=== PATIENT | male | born 1945 | race Caucasian/White ===

== ENCOUNTER 2019-08-02 10:39 | Inpatient (IN) ==
[2019-08-02] MEDS ORDERED: DOCUSATE SODIUM 100 MG CAPSULE PO PRN ×2 (14:29→15:38)
[2019-08-02] MEDS ORDERED: ONDANSETRON 4 MG/2 ML VIAL IV PRN (14:29)
[2019-08-02] MEDS ORDERED: ACETAMINOPHEN 325 MG TABLET PO PRN (14:29)
[2019-08-02] MEDS ORDERED: DEXTROSE 10% 250 ML BAG IV PRN (14:29)
[2019-08-02] MEDS ORDERED: GLUCAGON 1 MG VIAL IM PRN (14:29)
[2019-08-02] MEDS ORDERED: ENOXAPARIN 40 MG/0.4 ML SYRINGE SUBCUT SCH (15:00)
[2019-08-02 15:18] LABS: Basophils # 0.2 10*3/uL (0.0-0.2); Basophils % 0.6 % (0.0-0.8); Eosinophils # 0.1 10*3/uL (0.0-0.87); Eosinophils % 0.3 % (0.00-10.9); Hemoglobin 14.7 GM/DL (14.0-18.0); Immature Granulocytes % 1.7 %; Immature Granulocytes Absolute 0.51 #; Lymphocytes # 1.6 10*3/uL (1.4-4.0); Lymphocytes % 5.4 % (21.2-54.2); Mean Corpuscular HGB Conc 34.2 GM/DL (32-36); Mean Corpuscular Volume 94.7 FL (87-102); Mean Platelet Volume 9.5 FL (9.6-12.0); Monocytes % 4.3 % (1.7-12.7); Neutrophils % 87.7 % (38.7-73.9); Platelet Count 234 T/CUMM (130-400); Red Blood Count 4.54 MC/CUMM (3.8-5.5); Red Cell Distribution Width 13.7 % (9.3-17.3); White Blood Count 29.2 T/CUMM (4-12)
[2019-08-02] MEDS: dilTIAZem Drip 125 MG/125 ML PREMIX IV SCH (15:24)
[2019-08-02] MEDS ORDERED: POTASSIUM CHLORIDE RIDER 10 MEQ in PREMIX 1 EACH IV PRN (15:33)
[2019-08-02] MEDS ORDERED: traZODone 50 MG TABLET PO PRN (15:38)
[2019-08-02 15:48] LABS: Albumin 1.4 G/DL (3.4-5.0); Calcium 7.9 MG/DL (8.5-10.1); Osmolality,Calculated 259.4 MOS/KG (273-304); Thyroid Stimulating Hormone 1.68 uIU/ml (0.358-3.74); Total Protein 6.6 G/DL (6.4-8.3)
[2019-08-02 15:51] LABS: Anisocytosis Slight; Band Neutrophils 1 % (0-10); Lymphocytes 4 % (20-55); Macrocytosis Slight; Microcytosis Slight; Platelet Estimate Normal; Reactive Lymphocytes Slight; Segmented Neutrophils 92 % (50-85); Total Cells Counted 100
[2019-08-02] MEDS ORDERED: ALUM/MAG/SIMETH/LIDO VISC 1:1 30 ML BOTTLE PO ONE (15:51)
[2019-08-02 15:55] LABS: Apearance,Urine Slightly Hazy (Clear); Bacteria,Urine Many /HPF (Few); Bilirubin,Urine Negative (Negative); Blood, Urine Small mg/dL (Negative); Glucose,Urine (UA) Negative (Negative); Ketones,Urine Negative (Negative); Mucus,Urine Many /LPF (Occasional); Nitrite,Urine Negative (Negative); Protein,Urine 30 MG/DL; RBC,Urine 2 /HPF (0-4); Urine Color Amber (Yellow); Urine Specific Gravity 1.043 (1.001-1.035); WBC,Urine 67 /HPF (0-6)
[2019-08-02] MEDS: CEFEPIME 1,000 MG in SODIUM CHLORIDE 0.9% 100 ML IV SCH ×2 (16:15→21:57)
[2019-08-02] MEDS ORDERED: ALBUTEROL 1.25 MG/3 ML NEB RESP TX PRN (16:18)
[2019-08-02] MEDS: VANCOMYCIN INJ 1,500 MG in SODIUM CHLORIDE 0.9% 500 ML IV SCH (18:15)
[2019-08-02] MEDS ORDERED: ALBUTEROL/IPRATROPIUM 3 ML NEB RESP TX SCH (19:00)
[2019-08-02] MEDS: GABAPENTIN 300 MG CAPSULE PO SCH (20:43)
[2019-08-02] MEDS: TAMSULOSIN 0.4 MG CAPSULE PO SCH (20:43)
[2019-08-03] MEDS: CEFEPIME 1,000 MG in SODIUM CHLORIDE 0.9% 100 ML IV SCH ×4 (03:03→21:24)
[2019-08-03 03:42] LABS: Basophils # 0.2 10*3/uL (0.0-0.2); Basophils % 0.6 % (0.0-0.8); Eosinophils # 0.1 10*3/uL (0.0-0.87); Eosinophils % 0.3 % (0.00-10.9); Hematocrit 43.8 VOL% (42.0-52.0); Hemoglobin 14.5 GM/DL (14.0-18.0); Immature Granulocytes % 1.8 %; Immature Granulocytes Absolute 0.58 #; Lymphocytes # 1.9 10*3/uL (1.4-4.0); Lymphocytes % 5.6 % (21.2-54.2); Mean Corpuscular HGB Conc 33.1 GM/DL (32-36); Mean Corpuscular Volume 96.7 FL (87-102); Mean Platelet Volume 9.5 FL (9.6-12.0); Monocytes % 4.6 % (1.7-12.7); Neutrophils % 87.1 % (38.7-73.9); Platelet Count 234 T/CUMM (130-400); Red Blood Count 4.53 MC/CUMM (3.8-5.5); Red Cell Distribution Width 13.7 % (9.3-17.3); White Blood Count 32.9 T/CUMM (4-12)
[2019-08-03] MEDS: dilTIAZem Drip 125 MG/125 ML PREMIX IV SCH ×3 (03:55→16:21)
[2019-08-03 04:05] LABS: Blood Urea Nitrogen 31 MG/DL (7-18); Estimated Glom Filtration Rate 101 ML/MIN; Glucose 90 MG/DL (74-106); HDL Cholesterol < 10 MG/DL (40-60); Osmolality,Calculated 257.5 MOS/KG (273-304); Triglycerides 162 MG/DL (2-150); VLDL CHOLESTEROL 32.4 MG/DL
[2019-08-03 05:36] LABS: Band Neutrophils 7 % (0-10); Eosinophils 3 % (0-10); Lymphocytes 8 % (20-55); Metamyelocytes 1 %; Segmented Neutrophils 76 % (50-85); Total Cells Counted 100
[2019-08-03 05:37] LABS: Platelet Estimate Normal
[2019-08-03 05:38] LABS: Polychromasia Few
[2019-08-03] MEDS: CYANOCOBALAMIN 500 MCG TABLET PO SCH (08:28)
[2019-08-03] MEDS: POTASSIUM CHLORIDE 20 MEQ TABLET PO PRN (08:28)
[2019-08-03] MEDS: FOLIC ACID 1 MG TABLET PO SCH (08:28)
[2019-08-03] MEDS: ATORVASTATIN 10 MG TABLET PO SCH (08:28)
[2019-08-03] MEDS: MULTIVITAMIN (CENTRUM) TABLET PO SCH (08:28)
[2019-08-03] MEDS: FINASTERIDE 5 MG TABLET PO SCH (08:28)
[2019-08-03] MEDS: GABAPENTIN 300 MG CAPSULE PO SCH ×3 (08:28→21:23)
[2019-08-03] MEDS: PANTOPRAZOLE 40 MG TABLET PO SCH (08:29)
[2019-08-03] MEDS: CETIRIZINE 10 MG TABLET PO SCH (08:29)
[2019-08-03] MEDS: FERROUS SULFATE 325 MG TABLET PO SCH (08:51)
[2019-08-03] MEDS: CLINDAMYCIN INJ 900 MG in PREMIX 1 EACH IV SCH ×2 (10:22→17:00)
[2019-08-03] MEDS: VANCOMYCIN INJ 1,500 MG in SODIUM CHLORIDE 0.9% 500 ML IV SCH (12:32)
[2019-08-03] MEDS ORDERED: LIDOCAINE 1%/EPI INJ 20 ML VIAL ONE (15:43)
[2019-08-03] MEDS ORDERED: propofoL 200 MG/20 ML VIAL IV ONE (16:55)
[2019-08-03] MEDS ORDERED: ONDANSETRON 4 MG/2 ML VIAL ONE (16:56)
[2019-08-03] MEDS ORDERED: PHENYLEPHRINE 1 MG/10 ML SYRINGE IV ONE (16:56)
[2019-08-03] MEDS ORDERED: ETOMIDATE 40 MG/20 ML VIAL IV ONE (16:56)
[2019-08-03] MEDS ORDERED: LIDOCAINE 2% 5 ML VIAL ONE (16:56)
[2019-08-03] MEDS ORDERED: SODIUM CHLORIDE 0.9% 250 ML IV ONE (16:56)
[2019-08-03] MEDS ORDERED: DEXAMETHASONE 4 MG/1 ML VIAL ONE (16:56)
[2019-08-03] MEDS: DILTIAZEM 90 MG TABLET PO SCH ×2 (18:31→21:24)
[2019-08-03] MEDS: TAMSULOSIN 0.4 MG CAPSULE PO SCH (21:23)
[2019-08-03] MEDS: ASCORBIC ACID 500 MG TABLET PO SCH (21:24)
[2019-08-04] MEDS: CLINDAMYCIN INJ 900 MG in PREMIX 1 EACH IV SCH ×3 (01:50→17:45)
[2019-08-04] MEDS: CEFEPIME 1,000 MG in SODIUM CHLORIDE 0.9% 100 ML IV SCH ×2 (04:32→09:19)
[2019-08-04] MEDS: VANCOMYCIN INJ 1,500 MG in SODIUM CHLORIDE 0.9% 500 ML IV SCH (05:24)
[2019-08-04 07:42] LABS: Basophils # 0.2 10*3/uL (0.0-0.2); Basophils % 0.5 % (0.0-0.8); Hematocrit 42.7 VOL% (42.0-52.0); Hemoglobin 14.5 GM/DL (14.0-18.0); Immature Granulocytes % 2.5 %; Lymphocytes # 1.4 10*3/uL (1.4-4.0); Mean Corpuscular Volume 95.3 FL (87-102); Mean Platelet Volume 9.7 FL (9.6-12.0); Monocytes % 2.4 % (1.7-12.7); Neutrophils % 89.6 % (38.7-73.9); Platelet Count 176 T/CUMM (130-400); Red Blood Count 4.48 MC/CUMM (3.8-5.5); Red Cell Distribution Width 13.6 % (9.3-17.3); White Blood Count 28.5 T/CUMM (4-12)
[2019-08-04 07:58] LABS: Calcium 7.6 MG/DL (8.5-10.1); Osmolality,Calculated 260.1 MOS/KG (273-304)
[2019-08-04 08:00] LABS: Band Neutrophils 5 % (0-10); Hypochromasia Slight; Lymphocytes 4 % (20-55); Platelet Estimate Adequate; Segmented Neutrophils 91 % (50-85); Total Cells Counted 100
[2019-08-04] MEDS: CETIRIZINE 10 MG TABLET PO SCH (09:19)
[2019-08-04] MEDS: ASCORBIC ACID 500 MG TABLET PO SCH ×2 (09:19→21:40)
[2019-08-04] MEDS: PANTOPRAZOLE 40 MG TABLET PO SCH (09:20)
[2019-08-04] MEDS: FOLIC ACID 1 MG TABLET PO SCH (09:20)
[2019-08-04] MEDS: CYANOCOBALAMIN 500 MCG TABLET PO SCH (09:20)
[2019-08-04] MEDS: FERROUS SULFATE 325 MG TABLET PO SCH (09:20)
[2019-08-04] MEDS: DILTIAZEM 90 MG TABLET PO SCH ×3 (09:20→21:40)
[2019-08-04] MEDS: GABAPENTIN 300 MG CAPSULE PO SCH ×3 (09:20→21:40)
[2019-08-04] MEDS: FINASTERIDE 5 MG TABLET PO SCH (09:21)
[2019-08-04] MEDS: MULTIVITAMIN (CENTRUM) TABLET PO SCH (09:21)
[2019-08-04] MEDS: ATORVASTATIN 10 MG TABLET PO SCH (09:21)
[2019-08-04] MEDS: POTASSIUM CHLORIDE 20 MEQ TABLET PO PRN (10:28)
[2019-08-04] MEDS: MEROPENEM 500 MG in SODIUM CHLORIDE 0.9% 100 ML IV SCH ×2 (15:40→21:40)
[2019-08-04] MEDS: dilTIAZem Drip 125 MG/125 ML PREMIX IV SCH (15:58)
[2019-08-04] MEDS: TAMSULOSIN 0.4 MG CAPSULE PO SCH (21:40)
[2019-08-04] MEDS: ENOXAPARIN 80 MG/0.8 ML SYRINGE SUBCUT SCH (22:27)
[2019-08-05] MEDS: VANCOMYCIN INJ 1,500 MG in SODIUM CHLORIDE 0.9% 500 ML IV SCH (00:47)
[2019-08-05] MEDS: CLINDAMYCIN INJ 900 MG in PREMIX 1 EACH IV SCH ×3 (02:53→16:26)
[2019-08-05] MEDS: MEROPENEM 500 MG in SODIUM CHLORIDE 0.9% 100 ML IV SCH ×4 (03:20→21:00)
[2019-08-05 05:58] LABS: Basophils # 0.1 10*3/uL (0.0-0.2); Basophils % 0.6 % (0.0-0.8); Hematocrit 40.2 VOL% (42.0-52.0); Hemoglobin 13.5 GM/DL (14.0-18.0); Immature Granulocytes Absolute 1.05 #; Lymphocytes # 1.9 10*3/uL (1.4-4.0); Lymphocytes % 8.9 % (21.2-54.2); Mean Corpuscular HGB Conc 33.6 GM/DL (32-36); Mean Corpuscular Volume 94.6 FL (87-102); Mean Platelet Volume 9.9 FL (9.6-12.0); Monocytes % 5.6 % (1.7-12.7); Neutrophils % 79.9 % (38.7-73.9); Platelet Count 162 T/CUMM (130-400); Red Blood Count 4.25 MC/CUMM (3.8-5.5); White Blood Count 20.9 T/CUMM (4-12)
[2019-08-05 06:22] LABS: Band Neutrophils 7 % (0-10); Eosinophils 1 % (0-10); Hypochromasia 1+; Lymphocytes 5 % (20-55); Platelet Estimate Adequate; Segmented Neutrophils 84 % (50-85); Total Cells Counted 100
[2019-08-05 06:25] LABS: Calcium 7.4 MG/DL (8.5-10.1); Osmolality,Calculated 261.8 MOS/KG (273-304)
[2019-08-05] MEDS: CYANOCOBALAMIN 500 MCG TABLET PO SCH (08:45)
[2019-08-05] MEDS: PANTOPRAZOLE 40 MG TABLET PO SCH (08:45)
[2019-08-05] MEDS: MULTIVITAMIN (CENTRUM) TABLET PO SCH (08:45)
[2019-08-05] MEDS: FOLIC ACID 1 MG TABLET PO SCH (08:45)
[2019-08-05] MEDS: CETIRIZINE 10 MG TABLET PO SCH (08:45)
[2019-08-05] MEDS: GABAPENTIN 300 MG CAPSULE PO SCH ×3 (08:45→20:56)
[2019-08-05] MEDS: FINASTERIDE 5 MG TABLET PO SCH (08:45)
[2019-08-05] MEDS: ASCORBIC ACID 500 MG TABLET PO SCH ×2 (08:45→20:56)
[2019-08-05] MEDS: DILTIAZEM CD 240 MG CAPSULE PO SCH (08:45)
[2019-08-05] MEDS: ASPIRIN EC 81 MG TABLET PO SCH (08:46)
[2019-08-05] MEDS: ATORVASTATIN 10 MG TABLET PO SCH (08:46)
[2019-08-05] MEDS: FERROUS SULFATE 325 MG TABLET PO SCH (08:46)
[2019-08-05] MEDS ORDERED: POTASSIUM CHLORIDE 20 MEQ TABLET PO ONE (09:00)
[2019-08-05] MEDS: ENOXAPARIN 80 MG/0.8 ML SYRINGE SUBCUT SCH ×2 (10:16→22:54)
[2019-08-05] MEDS ORDERED: VANCOMYCIN INJ 1,500 MG in SODIUM CHLORIDE 0.9% 500 ML IV SCH (12:00)
[2019-08-05] MEDS: dilTIAZem Drip 125 MG/125 ML PREMIX IV SCH (14:42)
[2019-08-05] MEDS: TAMSULOSIN 0.4 MG CAPSULE PO SCH (20:56)
[2019-08-06] MEDS: CLINDAMYCIN INJ 900 MG in PREMIX 1 EACH IV SCH ×3 (01:27→16:52)
[2019-08-06] MEDS: MEROPENEM 500 MG in SODIUM CHLORIDE 0.9% 100 ML IV SCH ×4 (04:48→21:00)
[2019-08-06 05:04] LABS: Basophils % 0.1 % (0.0-0.8); Eosinophils # 0.1 10*3/uL (0.0-0.87); Eosinophils % 0.5 % (0.00-10.9); Hematocrit 43.1 VOL% (42.0-52.0); Hemoglobin 14.6 GM/DL (14.0-18.0); Immature Granulocytes % 9.2 %; Immature Granulocytes Absolute 1.82 #; Lymphocytes # 3.8 10*3/uL (1.4-4.0); Lymphocytes % 19.2 % (21.2-54.2); Mean Corpuscular HGB Conc 33.9 GM/DL (32-36); Mean Corpuscular Volume 95.1 FL (87-102); Mean Platelet Volume 10.2 FL (9.6-12.0); Platelet Count 198 T/CUMM (130-400); Red Blood Count 4.53 MC/CUMM (3.8-5.5); Red Cell Distribution Width 14.4 % (9.3-17.3); White Blood Count 19.8 T/CUMM (4-12)
[2019-08-06 05:30] LABS: Calcium 7.7 MG/DL (8.5-10.1); Osmolality,Calculated 265.4 MOS/KG (273-304)
[2019-08-06 06:17] LABS: Anisocytosis 1+; Band Neutrophils 2 % (0-10); Lymphocytes 13 % (20-55); Metamyelocytes 1 %; Platelet Estimate Adequate; Segmented Neutrophils 82 % (50-85); Total Cells Counted 100
[2019-08-06] MEDS: ASCORBIC ACID 500 MG TABLET PO SCH ×2 (09:08→21:34)
[2019-08-06] MEDS: FINASTERIDE 5 MG TABLET PO SCH (09:08)
[2019-08-06] MEDS: MULTIVITAMIN (CENTRUM) TABLET PO SCH (09:08)
[2019-08-06] MEDS: GABAPENTIN 300 MG CAPSULE PO SCH ×3 (09:08→21:34)
[2019-08-06] MEDS: FOLIC ACID 1 MG TABLET PO SCH (09:08)
[2019-08-06] MEDS: ATORVASTATIN 10 MG TABLET PO SCH (09:09)
[2019-08-06] MEDS: CETIRIZINE 10 MG TABLET PO SCH (09:09)
[2019-08-06] MEDS: CYANOCOBALAMIN 500 MCG TABLET PO SCH (09:09)
[2019-08-06] MEDS: PANTOPRAZOLE 40 MG TABLET PO SCH (09:09)
[2019-08-06] MEDS: FERROUS SULFATE 325 MG TABLET PO SCH (09:09)
[2019-08-06] MEDS: DILTIAZEM CD 240 MG CAPSULE PO SCH (09:09)
[2019-08-06] MEDS: ASPIRIN EC 81 MG TABLET PO SCH (09:10)
[2019-08-06] MEDS: ENOXAPARIN 80 MG/0.8 ML SYRINGE SUBCUT SCH ×2 (10:43→23:21)
[2019-08-06] MEDS ORDERED: POTASSIUM CHLORIDE 20 MEQ TABLET PO ONE (11:01)
[2019-08-06] MEDS ORDERED: MAGNESIUM SULF RIDER 2 GM in PREMIX 1 EACH IV ONE (11:03)
[2019-08-06] MEDS ORDERED: AMIODARONE INJ 150 MG in DEXTROSE 5% 100 ML IV ONE (12:17)
[2019-08-06] MEDS ORDERED: AMIODARONE INJ 450 MG in DEXTROSE 5% 241 ML IV SCH (12:30)
[2019-08-06] MEDS: dilTIAZem Drip 125 MG/125 ML PREMIX IV SCH (15:32)
[2019-08-06] MEDS: AMIODARONE INJ 450 MG in DEXTROSE 5% 241 ML IV SCH (20:00)
[2019-08-06] MEDS: TAMSULOSIN 0.4 MG CAPSULE PO SCH (21:34)
[2019-08-07] MEDS: CLINDAMYCIN INJ 900 MG in PREMIX 1 EACH IV SCH ×3 (00:30→17:03)
[2019-08-07 05:18] LABS: Basophils % 0.2 % (0.0-0.8); Eosinophils # 0.3 10*3/uL (0.0-0.87); Hematocrit 43.3 VOL% (42.0-52.0); Hemoglobin 14.7 GM/DL (14.0-18.0); Immature Granulocytes % 12.6 %; Immature Granulocytes Absolute 3.28 #; Lymphocytes # 3.9 10*3/uL (1.4-4.0); Mean Corpuscular HGB Conc 33.9 GM/DL (32-36); Mean Corpuscular Volume 93.9 FL (87-102); Mean Platelet Volume 9.9 FL (9.6-12.0); Monocytes % 6.9 % (1.7-12.7); Neutrophils % 64.3 % (38.7-73.9); Platelet Count 230 T/CUMM (130-400); Red Blood Count 4.61 MC/CUMM (3.8-5.5); Red Cell Distribution Width 14.6 % (9.3-17.3); White Blood Count 26.1 T/CUMM (4-12)
[2019-08-07 05:32] LABS: Calcium 7.8 MG/DL (8.5-10.1); Osmolality,Calculated 265.4 MOS/KG (273-304)
[2019-08-07] MEDS: MEROPENEM 500 MG in SODIUM CHLORIDE 0.9% 100 ML IV SCH ×4 (06:20→22:00)
[2019-08-07 06:32] LABS: Anisocytosis 1+; Band Neutrophils 3 % (0-10); Hypochromasia 1+; Lymphocytes 20 % (20-55); Platelet Estimate Adequate; Segmented Neutrophils 74 % (50-85); Total Cells Counted 100
[2019-08-07] MEDS ORDERED: MAGNESIUM SULF RIDER 2 GM in PREMIX 1 EACH IV ONE (07:57)
[2019-08-07] MEDS: MULTIVITAMIN (CENTRUM) TABLET PO SCH (09:23)
[2019-08-07] MEDS: AMIODARONE 200 MG TABLET PO SCH ×2 (09:23→21:00)
[2019-08-07] MEDS: DILTIAZEM CD 240 MG CAPSULE PO SCH (09:23)
[2019-08-07] MEDS: FOLIC ACID 1 MG TABLET PO SCH (09:23)
[2019-08-07] MEDS: FINASTERIDE 5 MG TABLET PO SCH (09:24)
[2019-08-07] MEDS: CYANOCOBALAMIN 500 MCG TABLET PO SCH (09:24)
[2019-08-07] MEDS: ATORVASTATIN 10 MG TABLET PO SCH (09:24)
[2019-08-07] MEDS: PANTOPRAZOLE 40 MG TABLET PO SCH (09:24)
[2019-08-07] MEDS: CETIRIZINE 10 MG TABLET PO SCH (09:24)
[2019-08-07] MEDS: ASCORBIC ACID 500 MG TABLET PO SCH ×2 (09:24→21:00)
[2019-08-07] MEDS: FERROUS SULFATE 325 MG TABLET PO SCH (09:24)
[2019-08-07] MEDS: ASPIRIN EC 81 MG TABLET PO SCH (09:29)
[2019-08-07] MEDS: GABAPENTIN 300 MG CAPSULE PO SCH ×3 (09:29→21:00)
[2019-08-07] MEDS: AMIODARONE INJ 450 MG in DEXTROSE 5% 241 ML IV SCH (10:07)
[2019-08-07] MEDS: ENOXAPARIN 80 MG/0.8 ML SYRINGE SUBCUT SCH ×2 (11:01→23:00)
[2019-08-07] MEDS: dilTIAZem Drip 125 MG/125 ML PREMIX IV SCH (14:29)
[2019-08-07] MEDS: TAMSULOSIN 0.4 MG CAPSULE PO SCH (21:00)
[2019-08-08] MEDS: CLINDAMYCIN INJ 900 MG in PREMIX 1 EACH IV SCH ×3 (01:00→16:51)
[2019-08-08] MEDS: AMIODARONE INJ 450 MG in DEXTROSE 5% 241 ML IV SCH ×2 (01:49→14:36)
[2019-08-08] MEDS: MEROPENEM 500 MG in SODIUM CHLORIDE 0.9% 100 ML IV SCH ×4 (04:17→21:43)
[2019-08-08 05:28] LABS: Basophils # 0.1 10*3/uL (0.0-0.2); Basophils % 0.2 % (0.0-0.8); Eosinophils # 0.6 10*3/uL (0.0-0.87); Eosinophils % 2.1 % (0.00-10.9); Hematocrit 41.3 VOL% (42.0-52.0); Hemoglobin 13.7 GM/DL (14.0-18.0); Immature Granulocytes % 13.1 %; Immature Granulocytes Absolute 3.75 #; Lymphocytes # 3.5 10*3/uL (1.4-4.0); Lymphocytes % 12.2 % (21.2-54.2); Mean Corpuscular HGB Conc 33.2 GM/DL (32-36); Mean Corpuscular Volume 96.5 FL (87-102); Mean Platelet Volume 9.7 FL (9.6-12.0); Monocytes % 7.1 % (1.7-12.7); Neutrophils % 65.3 % (38.7-73.9); Platelet Count 316 T/CUMM (130-400); Red Blood Count 4.28 MC/CUMM (3.8-5.5); Red Cell Distribution Width 14.4 % (9.3-17.3); White Blood Count 28.6 T/CUMM (4-12)
[2019-08-08 05:50] LABS: Band Neutrophils 1 % (0-10); Eosinophils 2 % (0-10); Lymphocytes 8 % (20-55); Segmented Neutrophils 84 % (50-85); Total Cells Counted 100
[2019-08-08 05:51] LABS: Hypochromasia 1+; Macrocytosis Slight; Polychromasia Slight
[2019-08-08 05:53] LABS: Calcium 7.9 MG/DL (8.5-10.1); Osmolality,Calculated 259.8 MOS/KG (273-304)
[2019-08-08] MEDS ORDERED: MAGNESIUM SULF RIDER 4 GM in PREMIX 1 EACH IV PRN (07:37)
[2019-08-08] MEDS ORDERED: MAGNESIUM SULF RIDER 2 GM in PREMIX 1 EACH IV PRN (07:37)
[2019-08-08] MEDS: ASPIRIN EC 81 MG TABLET PO SCH (08:20)
[2019-08-08] MEDS: DILTIAZEM CD 240 MG CAPSULE PO SCH (08:20)
[2019-08-08] MEDS: MULTIVITAMIN (CENTRUM) TABLET PO SCH (08:21)
[2019-08-08] MEDS: AMIODARONE 200 MG TABLET PO SCH (08:22)
[2019-08-08] MEDS: FOLIC ACID 1 MG TABLET PO SCH (08:22)
[2019-08-08] MEDS: FERROUS SULFATE 325 MG TABLET PO SCH (08:22)
[2019-08-08] MEDS: ASCORBIC ACID 500 MG TABLET PO SCH ×2 (08:23→21:42)
[2019-08-08] MEDS: GABAPENTIN 300 MG CAPSULE PO SCH ×3 (08:23→21:42)
[2019-08-08] MEDS: ATORVASTATIN 10 MG TABLET PO SCH (08:23)
[2019-08-08] MEDS: FINASTERIDE 5 MG TABLET PO SCH (08:23)
[2019-08-08] MEDS: CETIRIZINE 10 MG TABLET PO SCH (08:23)
[2019-08-08] MEDS: CYANOCOBALAMIN 500 MCG TABLET PO SCH (08:23)
[2019-08-08] MEDS: PANTOPRAZOLE 40 MG TABLET PO SCH (08:23)
[2019-08-08] MEDS: ENOXAPARIN 80 MG/0.8 ML SYRINGE SUBCUT SCH ×2 (11:05→22:29)
[2019-08-08] MEDS: POLYETHYLENE GLYCOL POWDER 17 GM PACK PO SCH (11:05)
[2019-08-08] MEDS: dilTIAZem Drip 125 MG/125 ML PREMIX IV SCH (14:05)
[2019-08-08] MEDS: TAMSULOSIN 0.4 MG CAPSULE PO SCH (21:42)
[2019-08-09] MEDS: CLINDAMYCIN INJ 900 MG in PREMIX 1 EACH IV SCH ×3 (01:06→16:27)
[2019-08-09] MEDS: MEROPENEM 500 MG in SODIUM CHLORIDE 0.9% 100 ML IV SCH ×4 (03:49→21:07)
[2019-08-09 05:24] LABS: Basophils # 0.1 10*3/uL (0.0-0.2); Basophils % 0.2 % (0.0-0.8); Eosinophils # 0.6 10*3/uL (0.0-0.87); Eosinophils % 2.1 % (0.00-10.9); Hematocrit 41.4 VOL% (42.0-52.0); Hemoglobin 13.8 GM/DL (14.0-18.0); Immature Granulocytes % 11.7 %; Immature Granulocytes Absolute 3.61 #; Lymphocytes # 4.1 10*3/uL (1.4-4.0); Lymphocytes % 13.2 % (21.2-54.2); Mean Corpuscular HGB Conc 33.3 GM/DL (32-36); Mean Corpuscular Volume 95.2 FL (87-102); Mean Platelet Volume 9.9 FL (9.6-12.0); Monocytes % 7.4 % (1.7-12.7); Neutrophils % 65.4 % (38.7-73.9); Platelet Count 450 T/CUMM (130-400); Red Blood Count 4.35 MC/CUMM (3.8-5.5); Red Cell Distribution Width 14.4 % (9.3-17.3); White Blood Count 30.9 T/CUMM (4-12)
[2019-08-09 05:28] LABS: Calcium 7.8 MG/DL (8.5-10.1); Osmolality,Calculated 261.8 MOS/KG (273-304)
[2019-08-09 05:47] LABS: Band Neutrophils 3 % (0-10); Eosinophils 4 % (0-10); Hypochromasia 1+; Lymphocytes 12 % (20-55); Myelocytes 1 %; Segmented Neutrophils 70 % (50-85); Total Cells Counted 100
[2019-08-09 05:48] LABS: Macrocytosis Slight
[2019-08-09] MEDS: AMIODARONE INJ 450 MG in DEXTROSE 5% 241 ML IV SCH ×2 (06:12→21:07)
[2019-08-09] MEDS: DILTIAZEM CD 240 MG CAPSULE PO SCH (08:43)
[2019-08-09] MEDS: ASPIRIN EC 81 MG TABLET PO SCH (08:43)
[2019-08-09] MEDS: AMIODARONE 200 MG TABLET PO SCH (08:44)
[2019-08-09] MEDS: ATORVASTATIN 10 MG TABLET PO SCH (08:44)
[2019-08-09] MEDS: FERROUS SULFATE 325 MG TABLET PO SCH (08:44)
[2019-08-09] MEDS: FOLIC ACID 1 MG TABLET PO SCH (08:44)
[2019-08-09] MEDS: MULTIVITAMIN (CENTRUM) TABLET PO SCH (08:45)
[2019-08-09] MEDS: FINASTERIDE 5 MG TABLET PO SCH (08:45)
[2019-08-09] MEDS: PANTOPRAZOLE 40 MG TABLET PO SCH (08:45)
[2019-08-09] MEDS: CYANOCOBALAMIN 500 MCG TABLET PO SCH (08:45)
[2019-08-09] MEDS: POLYETHYLENE GLYCOL POWDER 17 GM PACK PO SCH (08:45)
[2019-08-09] MEDS: GABAPENTIN 300 MG CAPSULE PO SCH ×3 (08:45→21:06)
[2019-08-09] MEDS: ASCORBIC ACID 500 MG TABLET PO SCH ×2 (08:46→21:06)
[2019-08-09] MEDS: CETIRIZINE 10 MG TABLET PO SCH (08:46)
[2019-08-09] MEDS: ENOXAPARIN 80 MG/0.8 ML SYRINGE SUBCUT SCH ×2 (10:39→22:33)
[2019-08-09] MEDS: dilTIAZem Drip 125 MG/125 ML PREMIX IV SCH (14:39)
[2019-08-09] MEDS: TAMSULOSIN 0.4 MG CAPSULE PO SCH (21:06)
[2019-08-10] MEDS: CLINDAMYCIN INJ 900 MG in PREMIX 1 EACH IV SCH ×2 (00:56→09:26)
[2019-08-10] MEDS: MEROPENEM 500 MG in SODIUM CHLORIDE 0.9% 100 ML IV SCH ×2 (04:06→09:27)
[2019-08-10 06:08] LABS: Basophils # 0.2 10*3/uL (0.0-0.2); Basophils % 0.7 % (0.0-0.8); Eosinophils # 0.5 10*3/uL (0.0-0.87); Hematocrit 41.3 VOL% (42.0-52.0); Hemoglobin 13.7 GM/DL (14.0-18.0); Immature Granulocytes % 6.7 %; Immature Granulocytes Absolute 1.57 #; Lymphocytes # 3.1 10*3/uL (1.4-4.0); Lymphocytes % 13.3 % (21.2-54.2); Mean Corpuscular HGB Conc 33.2 GM/DL (32-36); Mean Corpuscular Volume 96.5 FL (87-102); Mean Platelet Volume 9.9 FL (9.6-12.0); Monocytes % 9.1 % (1.7-12.7); Neutrophils % 68.2 % (38.7-73.9); Platelet Count 530 T/CUMM (130-400); Red Blood Count 4.28 MC/CUMM (3.8-5.5); Red Cell Distribution Width 14.3 % (9.3-17.3); White Blood Count 23.3 T/CUMM (4-12)
[2019-08-10 06:28] LABS: Calcium 7.9 MG/DL (8.5-10.1); Osmolality,Calculated 264.5 MOS/KG (273-304)
[2019-08-10 06:45] LABS: Band Neutrophils 1 % (0-10); Eosinophils 4 % (0-10); Lymphocytes 10 % (20-55); Platelet Estimate Increased; Segmented Neutrophils 74 % (50-85); Total Cells Counted 100
[2019-08-10 06:46] LABS: Hypochromasia Slight; Macrocytosis Slight
[2019-08-10] MEDS: FINASTERIDE 5 MG TABLET PO SCH (09:24)
[2019-08-10] MEDS: DILTIAZEM CD 240 MG CAPSULE PO SCH (09:24)
[2019-08-10] MEDS: GABAPENTIN 300 MG CAPSULE PO SCH (09:24)
[2019-08-10] MEDS: FERROUS SULFATE 325 MG TABLET PO SCH (09:24)
[2019-08-10] MEDS: AMIODARONE 200 MG TABLET PO SCH (09:24)
[2019-08-10] MEDS: MULTIVITAMIN (CENTRUM) TABLET PO SCH (09:24)
[2019-08-10] MEDS: ASCORBIC ACID 500 MG TABLET PO SCH (09:24)
[2019-08-10] MEDS: CETIRIZINE 10 MG TABLET PO SCH (09:24)
[2019-08-10] MEDS: CYANOCOBALAMIN 500 MCG TABLET PO SCH (09:24)
[2019-08-10] MEDS: ASPIRIN EC 81 MG TABLET PO SCH (09:25)
[2019-08-10] MEDS: PANTOPRAZOLE 40 MG TABLET PO SCH (09:25)
[2019-08-10] MEDS: POLYETHYLENE GLYCOL POWDER 17 GM PACK PO SCH (09:25)
[2019-08-10] MEDS: FOLIC ACID 1 MG TABLET PO SCH (09:25)
[2019-08-10] MEDS: ATORVASTATIN 10 MG TABLET PO SCH (09:25)
[2019-08-10 12:02] VITALS: BP 122/86
[2019-08-10] MEDS: ENOXAPARIN 80 MG/0.8 ML SYRINGE SUBCUT SCH (12:04)
== END 2019-08-10 12:53 | disposition home health service (06) | DRG 177 ==
LOC: SUATTDRO 13:37 → N.TELES 13:37
PROVIDERS: ADMIT Internal Medicine; ATTEND Internal Medicine Geriatric Medicine